=== PATIENT | female | born 1970 | race Caucasian/White ===

== ENCOUNTER 2018-06-23 10:06 | Emergency (ER) | payer SELFPAY ==
[~2018-06-23] VITALS: Ht 152.4 cm; Wt 49.9 kg
[2018-06-23] MEDS ORDERED: VENTOLIN HFA18 GM INH ×2 (10:49→12:23)
[2018-06-23] MEDS ORDERED: QVAR REDIHALE10.6 G1 INH (12:23)
[2018-06-23] MEDS ORDERED: FLOVENT HFA12 G1 INH (12:42)
[2018-06-23] MEDS ORDERED: PREDNISONE20 MG PO (12:42)
== END 2018-06-23 12:58 | disposition home or self-care (01) ==
LOC: ED 10:06
DX: J11.1 Influenza due to unidentified influenza virus with other respiratory manifestations (principal); J20.9 Acute bronchitis, unspecified; F17.200 Nicotine dependence, unspecified, uncomplicated; Z88.0 Allergy status to penicillin
CPT/HCPCS: 71046; 99283-25; J7512

== ENCOUNTER 2019-06-24 11:04 | Emergency (ER) | payer OTHER ==
[~2019-06-24] VITALS: Ht 152.4 cm; Wt 49.9 kg
[~2019-06-24 11:04] MED LIST: FLOVENT HFA12 G1 INH; PREDNISONE20 MG PO; QVAR REDIHALE10.6 G1 INH; VENTOLIN HFA18 GM INH
[2019-06-24] MEDS ORDERED: QVAR REDIHALE10.6 G1 HHN (12:35)
[2019-06-24] MEDS ORDERED: ALBUTEROL2.5 MG/3 M INH (12:37)
--- NOTE | 2019-06-24 17:31 | EKG ---
[facility] [address] [place], [place] [address] Signed Normal sinus rhythm with sinus arrhythmia Nonspecific ST abnormality Abnormal ECG No previous ECGs available Confirmed by JING CARDONA DO ([id number]) on 06/24/2019 5:30:47 PM Electronically Signed By: JING CARDONA DO 06/24/19 1731 PATIENT NAME: JACIEL MCCRARY Electrocardiogram DATE OF : 74 PHYSICIAN: JING CARDONA DO REPORT #: [id number] REPORT IS CONFIDENTIAL AND NOT TO BE RELEASED WITHOUT AUTHORIZATION
== END 2019-06-24 13:00 | disposition home or self-care (01) ==
LOC: ED 11:04
DX: J06.9 Acute upper respiratory infection, unspecified (principal); J45.909 Unspecified asthma, uncomplicated; F17.200 Nicotine dependence, unspecified, uncomplicated; Z88.0 Allergy status to penicillin; Z79.899 Other long term (current) drug therapy
CPT/HCPCS: 71045; 80053; 83735; 84484; 85025; 85379; 87502; 93005; 93010; 96360; 99285-25; J7121